=== PATIENT | female | born 1980 | race Caucasian/White ===

== ENCOUNTER → 2017-11-03 15:16 | Outpatient (CLI) | payer OTHER, MEDICAID, SELFPAY ==
[2017-11-03 16:48] LABS: TSH w/ Reflex to FT4 3.15 uIU/mL (0.47-4.68)
== END ==
PROVIDERS: PCP Family Medicine; Visit Provider Family Medicine
DX: E03.9 Hypothyroidism, unspecified (principal)
CPT/HCPCS: 36415; 84443

== ENCOUNTER → 2017-11-07 15:17 | Outpatient (CLI) | payer OTHER, MEDICAID, SELFPAY ==
[2017-11-07 16:47] LABS: Ferritin 31.8 ng/mL (6.27-137)
[2017-11-07 17:18] LABS: Vitamin D 25 Hydroxy (D3) 55.9 ng/mL (30.0-100.0)
== END ==
PROVIDERS: PCP Family Medicine; Visit Provider Family Medicine
DX: L65.9 Nonscarring hair loss, unspecified (principal); E55.9 Vitamin D deficiency, unspecified
CPT/HCPCS: 36415; 82306; 82728

== ENCOUNTER → 2017-12-09 11:14 | Outpatient (CLI) | payer OTHER, MEDICAID, SELFPAY ==
[2017-12-09 12:18] LABS: Add Manual Diff / Slide Review NO; Basophils Percent Auto 0.4 % (0-2); Eosinophils Percent Auto 1.6 % (2-4); Hematocrit 42.2 % (36-46); Hemoglobin 14.3 g/dL (12.0-16.0); Lymphocytes Percent Auto 25.2 % (25-40); Mean Corpuscular Hemoglobin 29.4 PG (26-34); Mean Corpuscular Volume 86.5 fL (80-100); Monocytes Percent Auto 5.5 % (3-14); Neutrophils Absolute Auto 4800 /uL (3000-5900); Neutrophils Percent Auto 67.3 % (50-75); Platelet Count 283 X10^3/uL (150-400); Red Blood Cell Count 4.88 X10^6/uL (4.0-5.2); White Blood Cell Count 7.2 X10^3/uL (4.5-11.0)
[2017-12-09 12:50] LABS: Alanine Aminotransferase 28 IU/L (9-52); Albumin 4.3 g/dL (3.5-5.0); Albumin Globulin Ratio 1.4 (1.0-2.8); Alkaline Phosphatase 66 U/L (38-126); Aspartate Aminotransferase 19 IU/L (14-36); BUN Creatinine Ratio 12.9 (6-22); Bilirubin Total 0.5 mg/dL (0.2-1.3); Blood Urea Nitrogen 9 mg/dL (7-17); Calcium 9.7 mg/dL (8.4-10.2); Carbon Dioxide 27 mmol/L (22-32); Chloride 104 mmol/L (98-107); Estimated Glomerular Filt Rate > 60.0 mL/min (>60); Glucose 86 mg/dL (70-100); HEMOLYSIS < 15 (0-50); Sodium 142 mmol/L (137-145); Total Protein 7.3 g/dL (6.3-8.2)
== END ==
PROVIDERS: Family Provider Internal Medicine; PCP Family Medicine; Visit Provider Family Medicine
DX: R42 Dizziness and giddiness (principal); M54.9 Dorsalgia, unspecified
CPT/HCPCS: 36415; 80053; 85025

== ENCOUNTER → 2018-05-04 10:24 | Outpatient (CLI) | payer OTHER, MEDICAID, SELFPAY ==
[2018-05-04 11:48] LABS: Cholesterol 232 mg/dL (140-199); HDL Cholesterol 40 mg/dL (40-60); LDL Cholesterol Calculated 168 mg/dL (<100); Triglycerides 121 mg/dL (35-150)
[2018-05-04 12:04] LABS: Free T3, Triiodothyronine Free 2.94 pg/mL (2.77-5.27); Free T4, Direct Thyroxine 1.41 ng/dL (0.78-2.19)
[2018-05-04 12:18] LABS: Thyroid Stimulating Hormone 3.49 uIU/mL (0.47-4.68)
== END ==
PROVIDERS: PCP Family Medicine; Visit Provider Family Medicine
DX: E03.9 Hypothyroidism, unspecified (principal); E66.01 Morbid (severe) obesity due to excess calories; Z68.42 Body mass index [BMI] 45.0-49.9, adult
CPT/HCPCS: 36415; 80061; 84439; 84443; 84481

== ENCOUNTER → 2018-07-06 17:23 | Outpatient (CLI) | payer OTHER, MEDICAID, SELFPAY | PROVIDERS: Family Provider Internal Medicine; PCP Family Medicine; Visit Provider Physician Assistant | DX: J02.9 Acute pharyngitis, unspecified (principal) | CPT/HCPCS: 87070 ==

== ENCOUNTER → 2018-09-11 07:14 | Outpatient (CLI) | payer OTHER, MEDICAID, SELFPAY ==
[2018-09-11 09:58] LABS: Free T4, Direct Thyroxine 1.11 ng/dL (0.78-2.19)
== END ==
PROVIDERS: PCP Family Medicine; Visit Provider Family Medicine
DX: E03.9 Hypothyroidism, unspecified (principal)
CPT/HCPCS: 36415; 84439; 84443

== ENCOUNTER → 2018-11-16 09:04 | Outpatient (CLI) | payer OTHER, MEDICAID, SELFPAY ==
--- NOTE | 2018-11-16 09:08 | DI.CT.S_ITS ---
PROCEDURE: CT SINUS SCREEN WO CON INDICATIONS: facial swelling, pain TECHNIQUE: Noncontrast 3.0 mm axial images acquired from the frontal sinuses to the mid-sella, with coronal and sagittal reformats. For radiation dose reduction, the following was used: automated exposure control, adjustment of mA and/or kV according to patient size. COMPARISON: [facility], CT, SINUS SCREEN WO CONTRAST, 01/04/2014, 9:45. FINDINGS: Image quality: Excellent. Maxillary Sinuses: No bony remodeling or destruction. Thin bony septations are again seen within the anterior aspects of both maxillary sinuses, which are not regarded to be pathologic. No significant mucosal thickening can be seen. Ethmoid Air Cells: No bony remodeling or destruction. Sinuses are clear. Sphenoid Sinuses: No bony remodeling or destruction. Sinuses are clear. Frontal Sinuses: No bony remodeling or destruction. Sinuses are clear. Ostiomeatal Complexes: Ostiomeatal complexes are patent. No Milton cells. Miscellaneous: Visualized intra-orbital contents are normal. No meg bullosa or paradoxical turbinate curvature. There is moderate rightward nasal septal deviation. There is a small rightward directed bony nasal septal spur also present. IMPRESSION: No active paranasal sinus disease is seen. Moderate rightward nasal septal deviation, with a mild bony nasal septal spur. Dictated by: Eric Mccormack M.D. on 11/16/2018 at 10:33 Approved by: Eric Mccormack M.D. on 11/16/2018 at 10:35
[2018-11-16 10:54] LABS: TSH w/ Reflex to FT4 9.89 uIU/mL (0.47-4.68)
[2018-11-16 11:30] LABS: Free T4, Direct Thyroxine 1.15 ng/dL (0.78-2.19)
== END ==
PROVIDERS: PCP Family Medicine; Visit Provider Family Medicine
DX: J32.9 Chronic sinusitis, unspecified (principal); R22.0 Localized swelling, mass and lump, head; R51 Headache; J34.2 Deviated nasal septum; E03.9 Hypothyroidism, unspecified
CPT/HCPCS: 36415; 70486; 84439; 84443

== ENCOUNTER → 2019-04-02 09:02 | Outpatient (CLI) | payer OTHER, MEDICAID, SELFPAY ==
[2019-04-02 11:19] LABS: TSH w/ Reflex to FT4 7.29 uIU/mL (0.47-4.68)
== END ==
PROVIDERS: PCP Family Medicine; Visit Provider Family Medicine
DX: E03.9 Hypothyroidism, unspecified (principal)
CPT/HCPCS: 36415; 84439; 84443

== ENCOUNTER → 2019-12-20 12:53 | Outpatient (CLI) | payer OTHER, MEDICAID, SELFPAY ==
[2019-12-20 14:41] LABS: Thyroid Stimulating Hormone 8.27 uIU/mL (0.47-4.68)
== END ==
PROVIDERS: PCP Family Medicine; Referring Provider Family Medicine; Visit Provider Family Medicine
DX: E03.9 Hypothyroidism, unspecified (principal)
CPT/HCPCS: 36415; 84443

== ENCOUNTER → 2020-09-07 15:28 | Outpatient (CLI) | payer OTHER, MEDICAID, SELFPAY ==
[2020-09-07 17:52] LABS: TSH w/ Reflex to FT4 4.47 uIU/mL (0.47-4.68)
== END ==
PROVIDERS: PCP Family Medicine; Referring Provider Family Medicine; Visit Provider Family Medicine
DX: E03.9 Hypothyroidism, unspecified (principal)
CPT/HCPCS: 36415; 84443

== ENCOUNTER → 2021-05-11 16:05 | Outpatient (CLI) | payer OTHER, MEDICAID, SELFPAY ==
[2021-05-11 18:46] LABS: Free T4, Direct Thyroxine 1.43 ng/dL (0.78-2.19)
== END ==
PROVIDERS: PCP Family Medicine; Referring Provider Family Medicine; Visit Provider Family Medicine
DX: E03.9 Hypothyroidism, unspecified (principal)
CPT/HCPCS: 36415; 84439; 84443

== ENCOUNTER → 2022-02-20 07:57 | Outpatient (CLI) | payer OTHER, MEDICAID, SELFPAY ==
[2022-02-20 08:35] LABS: Add Manual Diff / Slide Review NO; Basophils Absolute Auto 0 /uL (0-100); Basophils Percent Auto 0.4 % (0-2); Eosinophils Absolute Auto 100 /uL (0-450); Eosinophils Percent Auto 1.4 % (2-4); Hemoglobin 13.8 g/dL (12.0-16.0); Lymphocytes Absolute Auto 2000 /uL (1100-4500); Lymphocytes Percent Auto 24.1 % (25-40); Mean Corpuscular HGB Conc 34.6 % (30-36); Mean Corpuscular Hemoglobin 29.5 PG (26-34); Mean Corpuscular Volume 85.3 fL (80-100); Monocytes Absolute Auto 500 /uL (0-900); Monocytes Percent Auto 5.9 % (3-14); Neutrophils Absolute Auto 5500 /uL (1500-7000); Neutrophils Percent Auto 68.2 % (50-75); Platelet Count 255 X10^3/uL (150-400); Red Blood Cell Count 4.69 X10^6/uL (4.0-5.2); Red Cell Distribution Width 12.9 % (11.6-14.8); White Blood Cell Count 8.1 X10^3/uL (4.5-11.0)
[2022-02-20 09:11] LABS: Alanine Aminotransferase 17 IU/L (<35); Albumin 4.2 g/dL (3.5-5.0); Albumin Globulin Ratio 1.3 (1.0-2.8); Alkaline Phosphatase 72 U/L (38-126); Aspartate Aminotransferase 19 IU/L (14-36); BUN Creatinine Ratio 16.2 (6-22); Bilirubin Total 0.4 mg/dL (0.2-1.3); Blood Urea Nitrogen 12 mg/dL (7-17); Calcium 8.9 mg/dL (8.4-10.2); Carbon Dioxide 26 mmol/L (22-32); Chloride 104 mmol/L (98-107); Cholesterol 251 mg/dL (140-199); Estimated Glomerular Filt Rate > 60 mL/min (>60); Globulin 3.3 g/dL (1.7-4.1); Glucose 100 mg/dL (70-100); HDL Cholesterol 46 mg/dL (40-60); HEMOLYSIS < 15 (0-50); LDL Cholesterol Calculated 184 mg/dL (<100); Sodium 138 mmol/L (137-145); Total Protein 7.5 g/dL (6.3-8.2); Triglycerides 104 mg/dL (35-150)
[2022-02-20 09:41] LABS: Thyroid Stimulating Hormone 7.33 uIU/mL (0.47-4.68)
== END ==
PROVIDERS: PCP Family Medicine; Referring Provider Family Medicine; Visit Provider Family Medicine
DX: E03.9 Hypothyroidism, unspecified (principal); E66.01 Morbid (severe) obesity due to excess calories; E78.5 Hyperlipidemia, unspecified; Z68.41 Body mass index [BMI] 40.0-44.9, adult
CPT/HCPCS: 36415; 80053; 80061; 84443; 85025

== ENCOUNTER → 2022-02-20 17:21 | Outpatient (CLI) | payer OTHER, MEDICAID, SELFPAY ==
--- NOTE | 2022-02-20 17:23 | DI.US.S_ITS ---
PROCEDURE: US THYROID INDICATIONS: ENLARGED THYROID DIFF REGULATING TSH TECHNIQUE: Real-time scanning was performed of the thyroid gland, with image documentation. COMPARISON: [facility], US, THYROID, 10/15/2013, 11:32. FINDINGS: Right: Thyroid lobe measures 5.4 x 1.9 x 1.3 cm. Left: Thyroid lobe measures 5.1 x 1.5 x 1.8 cm. Isthmus: 11.2 mm thick. Generalized heterogeneity can be seen of the thyroid, without focally suspicious nodules. No suspicious lymph nodes can be seen. IMPRESSION: No suspicious thyroid nodules are seen. Generalized thyroid heterogeneity can be seen. ACR TI-RADS definitions and recommendations: TI-RADS 1 (benign): 0 points. FNA not needed. TI-RADS 2 (not suspicious): 2 points. FNA not needed. TI-RADS 3 (mildly suspicious): 3 points. * FNA if 2.5 cm or larger, follow up if 1.5 cm or larger (at 1, 3, and 5 years). TI-RADS 4 (moderately suspicious): 4-6 points. * FNA if 1.5 cm or larger, follow up if 1 cm or larger (at 1, 2, 3, and 5 years). TI-RADS 5 (highly suspicious): 7 points or more. * FNA if 1 cm or larger, follow up if 0.5 cm or larger (every year for 5 years). Dictated by: Eric Mccormack M.D. on 02/21/2022 at 11:54 Approved by: Eric Mccormack M.D. on 02/21/2022 at 11:55
== END ==
PROVIDERS: PCP Family Medicine; Referring Provider Physician Assistant; Visit Provider Physician Assistant
DX: E04.9 Nontoxic goiter, unspecified (principal); E03.9 Hypothyroidism, unspecified; E66.01 Morbid (severe) obesity due to excess calories; E78.5 Hyperlipidemia, unspecified; Z68.41 Body mass index [BMI] 40.0-44.9, adult
CPT/HCPCS: 36415; 76536; 80053; 80061; 84443; 85025

== ENCOUNTER → 2022-05-01 08:04 | Outpatient (CLI) | payer OTHER, MEDICAID, SELFPAY ==
[2022-05-01 09:13] LABS: Cholesterol 233 mg/dL (140-199); HDL Cholesterol 47 mg/dL (40-60); LDL Cholesterol Calculated 158 mg/dL (<100); Triglycerides 140 mg/dL (35-150)
[2022-05-01 09:35] LABS: TSH w/ Reflex to FT4 0.89 uIU/mL (0.47-4.68)
== END ==
PROVIDERS: PCP Family Medicine; Referring Provider Physician Assistant; Visit Provider Physician Assistant
DX: E03.9 Hypothyroidism, unspecified (principal); E78.5 Hyperlipidemia, unspecified
CPT/HCPCS: 36415; 80061; 84443

== ENCOUNTER → 2022-07-29 15:08 | Outpatient (CLI) | payer OTHER, MEDICAID, SELFPAY ==
[2022-07-29 17:09] LABS: TSH w/ Reflex to FT4 0.52 uIU/mL (0.47-4.68)
== END ==
PROVIDERS: PCP Family Medicine; Referring Provider Physician Assistant; Visit Provider Physician Assistant
DX: E03.9 Hypothyroidism, unspecified (principal)
CPT/HCPCS: 36415; 84443

== ENCOUNTER 2022-10-24 23:09 | Emergency (ER) | payer OTHER, MEDICAID, SELFPAY ==
[2022-10-24 23:13] VITALS: BP 179/10; PULSE 101; RESP 18; TEMP 36.8; O2SAT 100
[2022-10-24] MEDS: FLUORESCEIN 1 MG STRIP EYE-BOTH (23:30)
[2022-10-24] MEDS: PROPARACAINE 0.5% OPHTH SOL 1 DROPS EYE-RIGHT (23:30)
[2022-10-24 23:37] VITALS: BMI 44.4
--- NOTE | 2022-10-24 23:37 | ED_ITS ---
HPI - General Adult General Chief complaint: Eye Problems Stated complaint: rt eye pain Time Seen by Provider: 10/24/22 23:22 Source: patient Mode of arrival: Ambulatory History of Present Illness HPI narrative: Patient is a 42-year-old female who is here for evaluation of irritation to her right eye. States that earlier this evening she felt like something went into her eye. She then rubbed it to try to remove it. She then flushed it. She is had some irritation in there since then then noticed some ?bubbles? on the right side of her eye. Some irritation but no vision changes. No prior eye surgeries. Does not wear glasses or contacts. Related Data Home Medications Medication Instructions Recorded Confirmed [PROBIOTIC] 1 tab PO QDAY ##0 03/07/16 10/10/22 OMEGA-3 FATTY ACIDS (FISH OIL) 500 mg PO ##0 04/03/16 10/10/22 multivitamin (Multiple Vitamins 1 tab PO QDAY ##0 10/22/16 10/10/22 tablet) Previous Rx's Medication Instructions Recorded Synthroid 200 mcg tablet 200 mcg PO DAILY #90 tabs 07/30/22 (levothyroxine) losartan 50 mg tablet See Rx Instructions .Route 10/10/22 .COMPLEX #90 tabs erythromycin 5 mg/gram (0.5 %) eye 0.5 inch EYE-RIGHT TID 2 days #3.5 10/24/22 ointment grams Allergies Allergy/AdvReac Type Severity Reaction Status Date / Time lisinopril Allergy Intermediate Rash Verified 10/24/22 23:15 aspirin Allergy Mild GI upset, Verified 10/24/22 23:15 vomiting, sweating fluconazole Allergy Mild swollen Verified 10/24/22 23:15 tongue, burning in mouth [place]oconut Allergy Mild rash and Uncoded 10/10/22 08:49 hard to breath Review of Systems Constitutional Constitutional: Reports system reviewed and no additional complaints, except as documented Eyes Eyes: Reports system reviewed and no additional complaints, except as documented ENT Ears, Nose, Mouth, and Throat: Reports system reviewed and no additional complaints, except as documented Integumentary/Breasts Skin/Breast: Reports system reviewed and no additional complaints, except as documented Patient History Medical History Acne Chicken pox (~1988) Essential hypertension GERD (gastroesophageal reflux disease) (~2013) Hay fever Hypertension (~2013) Hypothyroidism (~2008) Migraines (~1999) Obesity Surgical History History of third molar tooth extraction History of tonsillectomy Family History Mother Age: 59 Hypertension Osteoporosis Father No problems noted. Brother No problems noted. Brother No problems noted. Sister No problems noted. Social History marital status: number of children: 3 household members: children Smoking Status: Former smoker (4 year smoker 1/2 ppd) alcohol intake: never substance use type: does not use Smoking Status: Former smoker (4 year smoker 1/2 ppd) Exam Initial Vital Signs Initial Vital Signs: Vital Signs Temperature 98.3 F 10/24/22 23:13 Pulse Rate 101 H 10/24/22 23:13 Respiratory Rate 18 10/24/22 23:13 Blood Pressure 179/10 H 10/24/22 23:13 Pulse Oximetry 100 10/24/22 23:13 Oxygen Delivery Method Room Air 10/24/22 23:13 Eyes Other: Pupils are equal round and reactive. Her extraocular muscles intact. Patient does have chemosis on the temporal aspect of the right eye. Has a small corneal abrasion at the 9 o'clock position. No signs of ulceration. No foreign body noted on eversion of the upper and lower eyelids. Skin General: no rashes or lesions noted Neuro General: patient alert, patient awake and moves all extremities Extrem General: capillary refill normal Course Orders Ordered: Discontinued Medications Erythromycin (Erythromycin Ophth 1 Gm Oint) 1 applic EYE-RIGHT NOW ONE Stop: 10/24/22 23:38 Fluorescein Sodium (Fluorescein 1 Mg Strip) 1 mg EYE-BOTH NOW ONE Stop: 10/24/22 23:23 Last Admin: 10/24/22 23:30 Dose: 1 mg Documented By: AVINASH Proparacaine HCl (Proparacaine 0.5% Ophth Mag) 1 drops EYE-RIGHT NOW ONE Stop: 10/24/22 23:23 Last Admin: 10/24/22 23:30 Dose: 1 ml Documented By: AVINASH Vital Signs Vital signs: Vital Signs - 8 hr 10/24/22 23:13 Temperature 98.3 F Pulse Rate 101 H Respiratory Rate 18 Blood Pressure 179/10 H Pulse Oximetry 100 Oxygen Delivery Method Room Air Medical Decision Making MDM Narrative Medical decision making narrative: No foreign body noted. Does have chemosis and a corneal abrasion the right eye. This is consistent with her clinical presentation. Low suspicion for foreign body or open globe. Was placed on erythromycin ointment. Will discharge home with a prescription. She was given return precautions. She expressed understanding and agreement. Discharge Plan Departure Patient Disposition: Home Clinical Impression: Corneal abrasion, Chemosis of right conjunctiva Instructions: DI for Corneal Abrasion Activity Restrictions/Additional Instructions: Use the erythromycin ointment like we discussed. Your symptoms should improve within the next 24-48 hours. Return to the emergency department for new or worsening symptoms. Prescriptions: New erythromycin 5 mg/gram (0.5 %) ointment 0.5 inch EYE-RIGHT TID 2 Days Qty: 3.5 1RF No Action losartan 50 mg tablet See Rx Instructions .ROUTE .COMPLEX Qty: 90 3RF Dose Instruction: TAKE ONE TABLET BY MOUTH ONE TIME DAILY Rx Instructions: TAKE ONE TABLET BY MOUTH ONE TIME DAILY [PROBIOTIC] 1 tab PO QDAY Qty: 0 OMEGA-3 FATTY ACIDS (FISH OIL) 500 mg PO Qty: 0 multivitamin [Multiple Vitamins] 1 EACH tablet 1 tab PO QDAY Qty: 0 levothyroxine [Synthroid] 200 mcg tablet 200 mcg PO DAILY Qty: 90 3RF Rx Instructions: Take one tablet once daily 30-60 minutes prior to food or any other medicati ons. Referrals: Chelo Askew DO [Primary Care Provider] - Stand Alone Forms: Patient Portal/API
[2022-10-24] MEDS: ERYTHROMYCIN OPHTH 1 GM OINT 1 APPLIC EYE-RIGHT (23:41)
== END 2022-10-24 23:48 | disposition home or self-care (01) ==
PROVIDERS: Emergency Provider Emergency Medicine; PCP Family Medicine
DX: S05.01XA Injury of conjunctiva and corneal abrasion without foreign body, right eye, initial encounter (principal); H11.421 Conjunctival edema, right eye
CPT/HCPCS: 99282

== ENCOUNTER → 2023-01-06 07:23 | Outpatient (CLI) | payer OTHER, MEDICAID, SELFPAY ==
[2023-01-06 08:26] LABS: Add Manual Diff / Slide Review NO; Basophils Absolute Auto 0 /uL (0-100); Basophils Percent Auto 0.3 % (0-2); Eosinophils Absolute Auto 100 /uL (0-450); Eosinophils Percent Auto 1.9 % (2-4); Hematocrit 38.7 % (36-46); Hemoglobin 13.1 g/dL (12.0-16.0); Lymphocytes Absolute Auto 1700 /uL (1100-4500); Lymphocytes Percent Auto 27.3 % (25-40); Mean Corpuscular HGB Conc 33.9 % (30-36); Mean Corpuscular Hemoglobin 28.9 PG (26-34); Mean Corpuscular Volume 85.4 fL (80-100); Monocytes Absolute Auto 500 /uL (0-900); Monocytes Percent Auto 7.5 % (3-14); Neutrophils Absolute Auto 3800 /uL (1500-7000); Platelet Count 248 X10^3/uL (150-400); Red Blood Cell Count 4.53 X10^6/uL (4.0-5.2); Red Cell Distribution Width 13.2 % (11.6-14.8); White Blood Cell Count 6.1 X10^3/uL (4.5-11.0)
[2023-01-06 08:37] LABS: Alanine Aminotransferase 22 IU/L (<35); Albumin 3.9 g/dL (3.5-5.0); Albumin Globulin Ratio 1.3 (1.0-2.8); Alkaline Phosphatase 54 U/L (38-126); Aspartate Aminotransferase 25 IU/L (14-36); BUN Creatinine Ratio 15.3 (6-22); Bilirubin Total 0.3 mg/dL (0.2-1.3); Blood Urea Nitrogen 11 mg/dL (7-17); Calcium 8.6 mg/dL (8.4-10.2); Carbon Dioxide 27 mmol/L (22-32); Chloride 105 mmol/L (98-107); Cholesterol 228 mg/dL (140-199); Estimated Glomerular Filt Rate > 60 mL/min (>60); Globulin 3.1 g/dL (1.7-4.1); Glucose 87 mg/dL (70-100); HDL Cholesterol 47 mg/dL (40-60); HEMOLYSIS < 15 (0-50); LDL Cholesterol Calculated 143 mg/dL (<100); Potassium 3.7 mmol/L (3.4-5.1); Sodium 137 mmol/L (137-145); Triglycerides 189 mg/dL (35-150)
[2023-01-06 08:40] LABS: HEMOLYSIS < 15 (0-50); Iron 86 ug/dL (37-170)
[2023-01-06 08:51] LABS: Percent Iron Saturation 21 % (15-50); Total Iron Binding Capacity 408 ug/dL (265-497); Transferrin 315 mg/dL (206-381)
[2023-01-06 09:09] LABS: TSH w/ Reflex to FT4 1.98 uIU/mL (0.47-4.68)
[2023-01-06 09:12] LABS: Ferritin 9 ng/mL (6-137)
[2023-01-06 09:27] LABS: Vitamin B12 290 pg/mL (239-931)
[2023-01-06 10:49] LABS: Creatinine Urine Random 109.7 mg/dL
[2023-01-06 10:55] LABS: Microalbumi Creatinin Ratio Ur 7.2 ug/mg CR (<30); Microalbumin Urine Random 0.8 mg/dL (0-1.6)
== END ==
PROVIDERS: PCP Family Medicine; Referring Provider Physician Assistant; Visit Provider Physician Assistant
DX: E03.9 Hypothyroidism, unspecified (principal); E78.5 Hyperlipidemia, unspecified; I10 Essential (primary) hypertension; N92.0 Excessive and frequent menstruation with regular cycle
CPT/HCPCS: 36415; 80053; 80061; 82043; 82570; 82607; 82728; 83540; 83550; 84443; 85025

== ENCOUNTER → 2023-01-10 08:40 | Outpatient (CLI) | payer OTHER, MEDICAID, SELFPAY ==
--- NOTE | 2023-01-10 08:41 | DI.US.S_ITS ---
PROCEDURE: US PELVIC COMPLETE INDICATIONS: MENORRHAGIA TECHNIQUE: Real-time scanning was performed of the pelvic organs, with image documentation. Additional endovaginal scanning was necessary due to incomplete visualization of the adnexal and endometrial structures by transabdominal scanning. COMPARISON: [facility], US, PELVIC COMPLETE, 11/16/2014, 13:14. FINDINGS: Uterus: Uterus is retroverted and normal in size at 9.5 x 6.4 x 7.3 cm. The myometrium is heterogeneous. The endometrium measures 15 mm combined thickness. Intramural fibroid on the left side measuring 2.3 x 1.7 x 2.5 centimeter. Ovaries: The right ovary measures 3.6 x 2.6 x 3.2 cm, with a calculated ovarian volume of 15 cc. The left ovary measures 2.9 x 2.1 x 2.8 cm, with a calculated ovarian volume of 9 cc. The ovaries have a normal sonographic appearance. Less than 12 follicles can be seen in each ovary. No adnexal masses are seen. Other: No pathologic free abdominal or pelvic fluid. IMPRESSION: Small intramural fibroid, otherwise unremarkable exam. We strive to produce accurate, complete, and clear reports of imaging services. To assist us in improving patient care, this report was composed using standard report templates and voice recognition software. Therefore, it may contain abnormal punctuation, insertions and/or omissions. Occasional wrong-word or sound-alike substitutions may occur. Though we review the report and make efforts to correct it, we do recommend that the report be read carefully in proper context to recognize any text inaccuracies. Dictated by: Leonidas Duenas M.D. on 01/10/2023 at 10:56 Approved by: Leonidas Duenas M.D. on 01/10/2023 at 10:59
--- NOTE | 2023-01-10 08:41 | DI.RAD.S_ITS ---
PROCEDURE: XR KNEE LT 4V INDICATIONS: Left knee pain TECHNIQUE: For views of the knee were acquired. COMPARISON: [facility], , KNEE 3V LEFT, 08/13/2012, 14:13. FINDINGS: Bones: No fractures or dislocations. No suspicious bony lesions. Tricompartmental joint space narrowing with osteophytic lipping. Soft tissues: Small joint effusion. No suspicious soft tissue calcifications. IMPRESSION: Mild tricompartmental osteoarthritis. Kellgren-T[place] Grade 1. Dictated by: Leonidas Duenas M.D. on 01/10/2023 at 10:55 Approved by: Leonidas Duenas M.D. on 01/10/2023 at 10:56
== END ==
PROVIDERS: Family Provider Student in an Organized Health Care Education/Training Program; PCP Student in an Organized Health Care Education/Training Program; Referring Provider Physician Assistant; Visit Provider Physician Assistant
DX: N92.0 Excessive and frequent menstruation with regular cycle (principal); D25.1 Intramural leiomyoma of uterus; M25.562 Pain in left knee; M17.12 Unilateral primary osteoarthritis, left knee
CPT/HCPCS: 73564; 76830; 76856

== ENCOUNTER 2023-02-04 16:45 | Outpatient (RCR) | payer OTHER, MEDICAID, SELFPAY ==
--- NOTE | 2023-01-30 14:03 | PT.OIE ---
Current Diagnoses Patellofemoral disorders, left knee (01/30/23) Past Medical History (Last Reviewed 10/24/22 @ 23:43 by Ludwig Sykes DO) Acne Chicken pox (~1988) Essential hypertension GERD (gastroesophageal reflux disease) (~2013) Hay fever Hypertension (~2013) Hypothyroidism (~2008) Migraines (~1999) Obesity Past Surgical History (Last Reviewed 10/10/22 @ 09:43 by Chelo Askew DO) History of third molar tooth extraction History of tonsillectomy Visit Care Team Role Provider Type Carie Garrett MD Family Provider Physician Primary Care Provider Specialty: Family Practice Obstetrics Address: [address] [place], [address] Fax: Email: [email or web address] [email or web address] Attending Provider Advanced Land Commissioner Referring Provider Specialty: Medical Address: [address] [place], [address] Email: [email or web address] Physical Therapy Initial Evaluation PT-OP-A Visit Information Start: 01/30/23 10:35 Freq: Status: Active Protocol: Document 01/30/23 13:51 ED (Rec: 01/30/23 14:03 ED [id number]) Out-Patient Physical Therapy Visit Information Visit Information Visit Type Initial Evaluation Visit Start Time 11:30 Visit Stop Time 12:15 Total Visit Minutes 45 Visit Number 1 Evaluation Information Evaluation Date 01/30/23 PT-OP-B Current Condition Start: 01/30/23 10:35 Freq: Status: Active Protocol: Document 01/30/23 13:51 ED (Rec: 01/30/23 14:03 ED [id number]) Current Condition History of Current Condition Onset Date 1 year Current Complaints bilateral knee pain History of Current Condition Pt states that for the past year she has had slowly progressing bilateral knee pain. Her pain is typically felt after long walks, negotiating steps, and initially moving them after sitting still for a while. Pt states that she had radiographs and was sort of disappointed b/c it just showed osteoarthritis and she was suspecting something more sinister. She has become much more sedentary in the past 1-2 months d/t the knee pain and suspecting that something was really wrong with them. Pt notes that she can live with what she is feeling in her knees and is somewhat on the fence about what exactly PT can help her with. 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 PT-OP-C Subjective Start: 01/30/23 10:35 Freq: Status: Active Protocol: Document 01/30/23 13:51 ED (Rec: 01/30/23 14:03 ED [id number]) Patient Questionnaires Lower Extremity Functional Scale LEFS Score 57 / 80 = 71.3 % LEFS Impairment 20 to 39% Impaired (Score 48- 62) OP-PT Pain Assessment Location Left knee Intensity 5 Scale Used Numeric (0 - 10) Description Aching Frequency Frequent Pain Aggravating Factors Position,Changing Position,ADL 's,Activity,Exercise,Stair Climbing PT-OP-E Functional Tests Start: 01/30/23 10:35 Freq: Status: Active Protocol: Document 01/30/23 13:51 ED (Rec: 01/30/23 14:03 ED [id number]) Functional Tests Five Times Sit to Stand Test Score 10 Comments no pain PT-OP-K Range of Motion Start: 01/30/23 10:35 Freq: Status: Active Protocol: Document 01/30/23 13:51 ED (Rec: 01/30/23 14:03 ED [id number]) Knee Goniometric Range of Motion Knee Right Knee ROM WFL Yes Patient Position Supine Flexion Active (degrees) 120 Extension Active (degrees) 0 Left Knee ROM WFL Yes Patient Position Supine Flexion Active (degrees) 120 Extension Active (degrees) 0 PT-OP-M Strength Start: 01/30/23 10:35 Freq: Status: Active Protocol: Document 01/30/23 13:51 ED (Rec: 01/30/23 14:03 ED [id number]) Knee Strength Knee Manual Muscle Testing Right Flexion (S2) 4 Good Extension (L3) 4 Good Left Flexion (S2) 4 Good Extension (L3) 4 Good PT-OP-T Assessment and Plan Start: 01/30/23 10:35 Freq: Status: Active Protocol: Document 01/30/23 13:51 ED (Rec: 01/30/23 14:03 ED [id number]) Physical Therapy Assessment Goals Four Impairment LEFS score Ios Developer Goal (LTG) Pt will improve LEFS score by >7 points to a score >65/80. LTG Duration 6-8 weeks Three Impairment stairs Short Term Goal (STG) Pt will be able to perform repeated step ups c/o pain. STG Duration 4 weeks Two Impairment pain Short Term Goal (STG) Pt will report 10% improvement in knee pain during daily activities. STG Duration 3 weeks Usp Goal (LTG) Pt will report 25% improvement in knee pain during daily activities. LTG Duration 6-8 weeks One Impairment HEP Short Term Goal (STG) Pt will report performing HEP >4 days/week. STG Duration 3 weeks Ios Developer Goal (LTG) Pt will report performing HEP >4 days/week. LTG Duration 6-8 weeks Assessment Summary Assessment Pt reported to PT c/ complaints of chronic knee pain likely d/t osteoarthritis that impairs her ability to go for long walks, climb stairs, and can be painful for her especially in the mornings or after sitting for too long. Pt had good ROM in her knees c/ no obvious deficits. Pt has low exercise history and would likely benefit from a structured exercise routine to improve knee strength and physical capabilities to perform her ADLs and recreational activities c/o knee pain. PT provided patient c/ initial HEP of : hip bridge variations , s/l hip abduction, repeated sit<>stands, heel raises, and lateral walking with a band. Pt able to perform all movements c/o pain during evaluation. Physical Therapy Plan Frequency and Duration Frequency of Treatment 2x/Week Duration of treatment (weeks) 10 Plan of Care Start Date 01/30/23 Plan of Care End Date 04/30/23 Therapeutic Interventions Therapeutic Interventions Balance Training,Gait Training ,Home Exercise Program,Joint Mobilizations,Manual Therapy, Neuromuscular Re-education, Patient/Caregiver Education, Self-Care/Home Management,Soft Tissue Mobilization,Taping, Therapeutic Activities, Therapeutic Exercises Modalities Biofeedback,Cold Pack/Ice Massage,Electric Stimulation, Hot Packs,Ultrasound Next Visit Focus/Plan Next Note Type Treatment Note Next Visit Plan recumbent bike, (HEP review : bridges, s/l hip abduction, sit<>stands, heel raises, banded walks), step ups, LAQ, SL balance
--- NOTE | 2023-01-30 14:04 | PT.OPPOC ---
Physical, Occupational & Speech Therapy At [facility] Current Diagnoses Patellofemoral disorders, left knee (01/30/23) Visit Care Team Role Provider Type Carie Garrett MD Family Provider Physician Primary Care Provider Specialty: Family Practice Obstetrics Address: [address] [place], [address] Fax: Email: [email or web address] Attending Provider Advanced Clock Repair Technician Referring Provider Specialty: Medical Address: [address] [place], [address] Email: [email or web address] Plan Of Care PT-OP-T Assessment and Plan Start: 01/30/23 10:35 Freq: Status: Active Protocol: Document 01/30/23 13:51 ED (Rec: 01/30/23 14:03 ED [id number]) Physical Therapy Assessment Goals Four Impairment LEFS score Copy Lathe Tender Goal (LTG) Pt will improve LEFS score by >7 points to a score >65/80. LTG Duration 6-8 weeks Three Impairment stairs Short Term Goal (STG) Pt will be able to perform repeated step ups c/o pain. STG Duration 4 weeks Two Impairment pain Short Term Goal (STG) Pt will report 10% improvement in knee pain during daily activities. STG Duration 3 weeks Copy Lathe Tender Goal (LTG) Pt will report 25% improvement in knee pain during daily activities. LTG Duration 6-8 weeks One Impairment HEP Short Term Goal (STG) Pt will report performing HEP >4 days/week. STG Duration 3 weeks Senior Living Goal (LTG) Pt will report performing HEP >4 days/week. LTG Duration 6-8 weeks Assessment Summary Assessment Pt reported to PT c/ complaints of chronic knee pain likely d/t osteoarthritis that impairs her ability to go for long walks, climb stairs, and can be painful for her especially in the mornings or after sitting for too long. Pt had good ROM in her knees c/ no obvious deficits. Pt has low exercise history and would likely benefit from a structured exercise routine to improve knee strength and physical capabilities to perform her ADLs and recreational activities c/o knee pain. PT provided patient c/ initial HEP of : hip bridge variations , s/l hip abduction, repeated sit<>stands, heel raises, and lateral walking with a band. Pt able to perform all movements c/o pain during evaluation. Physical Therapy Plan Frequency and Duration Frequency of Treatment 2x/Week Duration of treatment (weeks) 10 Plan of Care Start Date 01/30/23 Plan of Care End Date 04/30/23 Therapeutic Interventions Therapeutic Interventions Balance Training,Gait Training ,Home Exercise Program,Joint Mobilizations,Manual Therapy, Neuromuscular Re-education, Patient/Caregiver Education, Self-Care/Home Management,Soft Tissue Mobilization,Taping, Therapeutic Activities, Therapeutic Exercises Modalities Biofeedback,Cold Pack/Ice Massage,Electric Stimulation, Hot Packs,Ultrasound Next Visit Focus/Plan Next Note Type Treatment Note Next Visit Plan recumbent bike, (HEP review : bridges, s/l hip abduction, sit<>stands, heel raises, banded walks), step ups, LAQ, SL balance Plan of Care Dates Plan of Care Start Date 01/30/23 Plan of Care End Date 04/30/23 Electronically Signed by: Darren Watson, PT 01/30/23 0860 If you are in agreement with this Plan of Care, please return a signed and dated copy. I have reviewed this Plan of Care and certify that the skilled therapy services above are required to meet the patient?s needs. Physician Signature Date Printed Name and Credentials Clinical Instructor Signature Printed Name and Credentials
--- NOTE | 2023-02-04 17:22 | PT.OTN ---
Current Diagnoses Patellofemoral disorders, left knee (02/04/23) Physical Therapy Treatment Note PT-OP-A Visit Information Start: 01/30/23 10:35 Freq: Status: Active Protocol: Document 02/04/23 17:17 ED (Rec: 02/04/23 17:21 ED [id number]) Out-Patient Physical Therapy Visit Information Visit Information Visit Type Treatment Note Visit Start Time 16:45 Visit Stop Time 15:15 Total Visit Minutes 30 Visit Number 2 PT-OP-B Current Condition Start: 01/30/23 10:35 Freq: Status: Active Protocol: Document 01/30/23 13:51 ED (Rec: 01/30/23 14:03 ED [id number]) Current Condition History of Current Condition Onset Date 1 year Current Complaints bilateral knee pain History of Current Condition Pt states that for the past year she has had slowly progressing bilateral knee pain. Her pain is typically felt after long walks, negotiating steps, and initially moving them after sitting still for a while. Pt states that she had radiographs and was sort of disappointed b/c it just showed osteoarthritis and she was suspecting something more sinister. She has become much more sedentary in the past 1-2 months d/t the knee pain and suspecting that something was really wrong with them. Pt notes that she can live with what she is feeling in her knees and is somewhat on the fence about what exactly PT can help her with. 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 PT-OP-C Subjective Start: 01/30/23 10:35 Freq: Status: Active Protocol: Document 02/04/23 17:17 ED (Rec: 02/04/23 17:21 ED [id number]) OP-PT Subjective Patient Comments Patient Comments Pt states she did a few of her exercises over the weekend but not all of them. She works about 7 days/week so is finding it difficult to perform all her exercises each day. PT-OP-E Functional Tests Start: 01/30/23 10:35 Freq: Status: Active Protocol: Document 01/30/23 13:51 ED (Rec: 01/30/23 14:03 ED [id number]) Functional Tests Five Times Sit to Stand Test Score 10 Comments no pain PT-OP-K Range of Motion Start: 01/30/23 10:35 Freq: Status: Active Protocol: Document 01/30/23 13:51 ED (Rec: 01/30/23 14:03 ED [id number]) Knee Goniometric Range of Motion Knee Right Knee ROM WFL Yes Patient Position Supine Flexion Active (degrees) 120 Extension Active (degrees) 0 Left Knee ROM WFL Yes Patient Position Supine Flexion Active (degrees) 120 Extension Active (degrees) 0 PT-OP-M Strength Start: 01/30/23 10:35 Freq: Status: Active Protocol: Document 01/30/23 13:51 ED (Rec: 01/30/23 14:03 ED [id number]) Knee Strength Knee Manual Muscle Testing Right Flexion (S2) 4 Good Extension (L3) 4 Good Left Flexion (S2) 4 Good Extension (L3) 4 Good PT-OP-Q Treatments Start: 01/30/23 10:35 Freq: Status: Active Protocol: Document 02/04/23 17:17 ED (Rec: 02/04/23 17:21 ED [id number]) Cardio Equipment Recumbent Bicycle Duration (Minutes) 8 Resistance 4 Therapeutic Exercises Supine Exercises bridge Reps/Minutes 2x10 Sidelying Exercises hip abduction Reps/Minutes [id number] Sitting Exercises knee extension Sitting Exercise Name leg extension machine Resistance L2 Reps/Minutes [id number] Standing Exercises band walk Standing Exercise Name lateral band walk Resistance green loop Reps/Minutes 1x15' heel raise Reps/Minutes [id number] calf stretch Reps/Minutes 2x60'' Therapeutic Activity Therapeutic Activity squat Name STS Reps/Minutes [id number] Comments from chair PT-OP-T Assessment and Plan Start: 01/30/23 10:35 Freq: Status: Active Protocol: Document 02/04/23 17:17 ED (Rec: 02/04/23 17:21 ED [id number]) Physical Therapy Assessment Goals Four Impairment LEFS score [facility] Worker Goal (LTG) Pt will improve LEFS score by >7 points to a score >65/80. LTG Duration 6-8 weeks Three Impairment stairs Short Term Goal (STG) Pt will be able to perform repeated step ups c/o pain. STG Duration 4 weeks Two Impairment pain Short Term Goal (STG) Pt will report 10% improvement in knee pain during daily activities. STG Duration 3 weeks Skilled Nursing Goal (LTG) Pt will report 25% improvement in knee pain during daily activities. LTG Duration 6-8 weeks One Impairment HEP Short Term Goal (STG) Pt will report performing HEP >4 days/week. STG Duration 3 weeks Skilled Nursing Goal (LTG) Pt will report performing HEP >4 days/week. LTG Duration 6-8 weeks Assessment Summary Assessment Pt has limited exercise history so PT had patient perform small volume of total exercise today to reduce muscle and/or joint soreness tomorrow. PT and patient went over HEP which she was able to do comfortably. Pt additionally performed knee extension on the machine. PT and patient discussed graded exercise exposure and that PT will hopefully be able to slowly increase workout volume and exercise selection as she is able to tolerate more.
--- NOTE | 2023-02-25 09:53 | PT.OPDS ---
Current Diagnoses Patellofemoral disorders, left knee (02/04/23) Visit Care Team Role Provider Type Carie Garrett MD Family Provider Physician Primary Care Provider Specialty: Family Practice Obstetrics Address: [address] [place], [address] Phone: Fax: Email: [email or web address] [email or web address] Lancaster PA-C Attending Provider Advanced Floor Tech Referring Provider Specialty: Medical Address: [address] [place], [address] Email: [email or web address] Visit Number Visit Number 2 Discharge Summary PT-OP-B Current Condition Start: 01/30/23 10:35 Freq: Status: Active Protocol: Document 01/30/23 13:51 ED (Rec: 01/30/23 14:03 ED [id number]) Current Condition History of Current Condition Onset Date 1 year Current Complaints bilateral knee pain History of Current Condition Pt states that for the past year she has had slowly progressing bilateral knee pain. Her pain is typically felt after long walks, negotiating steps, and initially moving them after sitting still for a while. Pt states that she had radiographs and was sort of disappointed b/c it just showed osteoarthritis and she was suspecting something more sinister. She has become much more sedentary in the past 1-2 months d/t the knee pain and suspecting that something was really wrong with them. Pt notes that she can live with what she is feeling in her knees and is somewhat on the fence about what exactly PT can help her with. 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 PT-OP-C Subjective Start: 01/30/23 10:35 Freq: Status: Active Protocol: Document 02/04/23 17:17 ED (Rec: 02/04/23 17:21 ED [id number]) OP-PT Subjective Patient Comments Patient Comments Pt states she did a few of her exercises over the weekend but not all of them. She works about 7 days/week so is finding it difficult to perform all her exercises each day. PT-OP-E Functional Tests Start: 01/30/23 10:35 Freq: Status: Active Protocol: Document 01/30/23 13:51 ED (Rec: 01/30/23 14:03 ED [id number]) Functional Tests Five Times Sit to Stand Test Score 10 Comments no pain PT-OP-K Range of Motion Start: 01/30/23 10:35 Freq: Status: Active Protocol: Document 01/30/23 13:51 ED (Rec: 01/30/23 14:03 ED [id number]) Knee Goniometric Range of Motion Knee Right Knee ROM WFL Yes Patient Position Supine Flexion Active (degrees) 120 Extension Active (degrees) 0 Left Knee ROM WFL Yes Patient Position Supine Flexion Active (degrees) 120 Extension Active (degrees) 0 PT-OP-M Strength Start: 01/30/23 10:35 Freq: Status: Active Protocol: Document 01/30/23 13:51 ED (Rec: 01/30/23 14:03 ED [id number]) Knee Strength Knee Manual Muscle Testing Right Flexion (S2) 4 Good Extension (L3) 4 Good Left Flexion (S2) 4 Good Extension (L3) 4 Good PT-OP-T Assessment and Plan Start: 01/30/23 10:35 Freq: Status: Active Protocol: Document 02/25/23 09:51 ED (Rec: 02/25/23 09:53 ED [id number]) Physical Therapy Assessment Goals Four Impairment LEFS score [facility] Goal (LTG) Pt will improve LEFS score by >7 points to a score >65/80. LTG Duration 6-8 weeks Three Impairment stairs Short Term Goal (STG) Pt will be able to perform repeated step ups c/o pain. STG Duration 4 weeks Two Impairment pain Short Term Goal (STG) Pt will report 10% improvement in knee pain during daily activities. STG Duration 3 weeks [facility] Goal (LTG) Pt will report 25% improvement in knee pain during daily activities. LTG Duration 6-8 weeks One Impairment HEP Short Term Goal (STG) Pt will report performing HEP >4 days/week. STG Duration 3 weeks [facility] Goal (LTG) Pt will report performing HEP >4 days/week. LTG Duration 6-8 weeks Assessment Summary Assessment Pt will be discharged from PT services at this time. Pt has cancelled her last 7 appointments. PT did leave a VM for patient to discuss the cancellations and plan of care but phone call was not returned. She will be discharged d/t frequency of visit cancellations. Physical Therapy Plan Discharge Physical Therapy Discharge Reasons No Longer Attending PT
== END 2023-02-25 14:00 | disposition home or self-care (01) ==
LOC: PHYS 16:45
PROVIDERS: Family Provider Student in an Organized Health Care Education/Training Program; PCP Student in an Organized Health Care Education/Training Program; Referring Provider Physician Assistant; Visit Provider Physician Assistant
DX: M22.2X2 Patellofemoral disorders, left knee (principal)
CPT/HCPCS: 97110; 97161; 97530

== ENCOUNTER → 2023-05-07 08:02 | Outpatient (CLI) | payer OTHER, MEDICAID, SELFPAY ==
[2023-05-07 09:14] LABS: Cholesterol 228 mg/dL (140-199); HDL Cholesterol 46 mg/dL (40-60); LDL Cholesterol Calculated 160 mg/dL (<100); Triglycerides 110 mg/dL (35-150)
[2023-05-07 09:40] LABS: TSH w/ Reflex to FT4 0.85 uIU/mL (0.47-4.68)
[2023-05-07 09:57] LABS: Vitamin B12 402 pg/mL (239-931)
== END ==
PROVIDERS: Family Medicine; Family Provider Student in an Organized Health Care Education/Training Program; PCP Student in an Organized Health Care Education/Training Program; Referring Provider Student in an Organized Health Care Education/Training Program; Visit Provider Student in an Organized Health Care Education/Training Program
DX: E53.8 Deficiency of other specified B group vitamins (principal); E78.00 Pure hypercholesterolemia, unspecified; E03.9 Hypothyroidism, unspecified
CPT/HCPCS: 36415; 80061; 82607; 84443

== ENCOUNTER → 2023-08-01 08:29 | Outpatient (CLI) | payer OTHER, MEDICAID, SELFPAY ==
[2023-08-01 09:11] LABS: Hematocrit 37.6 % (36-46); Hemoglobin 12.5 g/dL (12.0-16.0); Mean Corpuscular HGB Conc 33.3 % (30-36); Mean Corpuscular Hemoglobin 27.3 PG (26-34); Platelet Count 293 X10^3/uL (150-400); Red Blood Cell Count 4.59 X10^6/uL (4.0-5.2); Red Cell Distribution Width 12.9 % (11.6-14.8); White Blood Cell Count 6.8 X10^3/uL (4.5-11.0)
[2023-08-01 09:16] LABS: Neutrophils Absolute Manual 4760 /uL (3000-5900); RBC Morphology Normal Morphology; Total Cells Counted 100
[2023-08-01 09:40] LABS: Alanine Aminotransferase 18 IU/L (<35); Albumin Globulin Ratio 1.3 (1.0-2.8); Alkaline Phosphatase 71 U/L (38-126); Aspartate Aminotransferase 23 IU/L (14-36); Bilirubin Total 0.7 mg/dL (0.2-1.3); Blood Urea Nitrogen 10 mg/dL (7-17); Calcium 9.7 mg/dL (8.4-10.2); Carbon Dioxide 26 mmol/L (22-32); Chloride 107 mmol/L (98-107); Estimated Glomerular Filt Rate > 60 mL/min (>60); Glucose 84 mg/dL (70-100); HEMOLYSIS < 15 (0-50); Potassium 4.1 mmol/L (3.4-5.1); Sodium 139 mmol/L (137-145)
[2023-08-01 10:22] LABS: Hemoglobin A1C% w Est Avg Glu 5.1 % (4.0-6.0)
[2023-08-01 10:49] LABS: TSH w/ Reflex to FT4 0.98 uIU/mL (0.47-4.68)
== END ==
PROVIDERS: Family Provider Student in an Organized Health Care Education/Training Program; PCP Student in an Organized Health Care Education/Training Program; Referring Provider Student in an Organized Health Care Education/Training Program; Visit Provider Student in an Organized Health Care Education/Training Program
DX: Z13.1 Encounter for screening for diabetes mellitus (principal); E66.01 Morbid (severe) obesity due to excess calories; E78.5 Hyperlipidemia, unspecified; Z13.29 Encounter for screening for other suspected endocrine disorder; I10 Essential (primary) hypertension; Z68.42 Body mass index [BMI] 45.0-49.9, adult
CPT/HCPCS: 36415; 80053; 83036; 84443; 85025

== ENCOUNTER → 2024-01-08 09:37 | Outpatient (CLI) | payer OTHER, MEDICAID, SELFPAY ==
[2024-01-08 10:34] LABS: Add Manual Diff / Slide Review NO; Basophils Absolute Auto 0 /uL (0-100); Basophils Percent Auto 0.5 % (0-2); Eosinophils Absolute Auto 100 /uL (0-450); Eosinophils Percent Auto 1.8 % (2-4); Hematocrit 36.8 % (36-46); Hemoglobin 12.7 g/dL (12.0-16.0); Lymphocytes Absolute Auto 1800 /uL (1100-4500); Lymphocytes Percent Auto 28.9 % (25-40); Mean Corpuscular HGB Conc 34.4 % (30-36); Mean Corpuscular Hemoglobin 28.1 PG (26-34); Mean Corpuscular Volume 81.7 fL (80-100); Monocytes Absolute Auto 300 /uL (0-900); Monocytes Percent Auto 5.3 % (3-14); Neutrophils Absolute Auto 4000 /uL (1500-7000); Neutrophils Percent Auto 63.5 % (50-75); Platelet Count 281 X10^3/uL (150-400); Red Blood Cell Count 4.51 X10^6/uL (4.0-5.2); Red Cell Distribution Width 13.9 % (11.6-14.8); White Blood Cell Count 6.2 X10^3/uL (4.5-11.0)
[2024-01-08 11:04] LABS: Alanine Aminotransferase 17 IU/L (<35); Albumin 3.9 g/dL (3.5-5.0); Albumin Globulin Ratio 1.3 (1.0-2.8); Alkaline Phosphatase 66 U/L (38-126); Aspartate Aminotransferase 23 IU/L (14-36); BUN Creatinine Ratio 13.2 (6-22); Bilirubin Total 0.7 mg/dL (0.2-1.3); Blood Urea Nitrogen 10 mg/dL (7-17); Calcium 9.2 mg/dL (8.4-10.2); Carbon Dioxide 25 mmol/L (22-32); Chloride 104 mmol/L (98-107); Estimated Glomerular Filt Rate > 60 mL/min (>60); Glucose 88 mg/dL (70-100); HEMOLYSIS < 15 (0-50); Potassium 3.8 mmol/L (3.4-5.1); Sodium 136 mmol/L (137-145); Total Protein 6.9 g/dL (6.3-8.2)
[2024-01-08 11:35] LABS: TSH w/ Reflex to FT4 0.89 uIU/mL (0.47-4.68)
== END ==
PROVIDERS: Family Provider Student in an Organized Health Care Education/Training Program; PCP Student in an Organized Health Care Education/Training Program; Referring Provider Student in an Organized Health Care Education/Training Program; Visit Provider Student in an Organized Health Care Education/Training Program
DX: E78.5 Hyperlipidemia, unspecified (principal); E66.01 Morbid (severe) obesity due to excess calories; Z68.42 Body mass index [BMI] 45.0-49.9, adult; L98.9 Disorder of the skin and subcutaneous tissue, unspecified; E03.9 Hypothyroidism, unspecified
CPT/HCPCS: 36415; 80053; 83036; 84443; 85025